=== PATIENT | male | born 1980 | race Caucasian/White ===

== ENCOUNTER 2017-05-10 10:19 | Emergency (ER) | payer SELFPAY ==
[2017-05-10 10:20] VITALS: BP 125/86; PULSE 76; RESP 20; TEMP 98.5; O2SAT 96
--- NOTE | 2017-05-10 10:41 | PD ---
HPI . left ear pain Chief Complaint: ENT Complaint Time Seen by Provider: 10:40 Travel History International Travel<30 days: No Contact w/Intl Traveler<30days: No Traveled to known affect area: No History of Present Illness HPI 36 yr old male here with c/o left ear pain and right elbow pain. Patient suddenly developed left ear pain. He says he saw a small amount of blood come out. He admits to lots of swimming. He also says he popped his right elbow and thinks he could have torn something. He is accompanied by his parents. PFSH Social History Tobacco Use: No Allergies-Medications (Allergen,Severity, Reaction): Coded Allergies: No Known Allergies (Unverified , 05/10/17) Reported Meds & Prescriptions Reported Meds & Active Scripts Active Ofloxacin Otic Drops 0.3 % Drops 10 Drop LEFT EAR DAILY 7 Days Review of Systems General / Constitutional: No: Fever Eyes: No: Visual changes HENT: Positive: Ear Discharge (blood), Earache, No: Headaches Cardiovascular: No: Chest Pain or Discomfort Respiratory: No: Shortness of Breath Gastrointestinal: No: Abdominal Pain Genitourinary: No: Dysuria Musculoskeletal: Positive: Pain (right elbow) Skin: No Rash Neurologic: No: Weakness Psychiatric: No: Depression Endocrine: No: Polydipsia Hematologic/Lymphatic: No: Easy Bruising Physical Exam Narrative GENERAL: AAO x 3, no acute distress, Well-nourished, well-developed patient. SKIN: Warm and dry. No visible rashes or bruising. HEAD: Normocephalic and atraumatic. EYES: No scleral icterus. No injection or drainage. EOM intact, PERRLA ENT: No nasal drainage noted. Mucous membranes pink. Airway patent. Bilateral TMs normal, left ear canal erythematous and edematous NECK: Supple, trachea midline. No JVD. No lymphadenopathy CARDIOVASCULAR: Regular rate and rhythm without murmurs, gallops, or rubs. RESPIRATORY: Breath sounds equal bilaterally. No accessory muscle use. No rhonchi or rales. GASTROINTESTINAL: Visual inspection normal EXTREMITIES: No cyanosis or edema. Full ROM of Right elbow. no tenderness to palpation, pain more along muscle of the upper arm. mild ecchymosis of soft tissue of upper arm BACK: No obvious deformity. 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 Data Data Last Documented VS Vital Signs Date Time Temp Pulse Resp B/P Pulse Ox O2 Delivery O2 Flow Rate FiO2 05/10/17 10:20 98.5 76 20 125/86 96 Room Air MDM Medical Decision Making Medical Screen Exam Complete: Yes Emergency Medical Condition: Yes Medical Record Reviewed: Yes Differential Diagnosis Otitis externa, otitis media, muscle strain, soft tissue injury, less likely elbow fracture Narrative Course 36-year-old male here with left otitis media. I will go ahead and treat him with some ear drops. In regards to his right arm, there is no evidence of a bony abnormality. I do not recommend imaging. I've discussed this with the family and recommended outpatient follow-up. I advised no swimming. Also recommend Tylenol and Motrin as needed for pain and fever. Patient verbalized understanding of instructions, questions were answered, and thanked me for their care. I advised them if their condition worsens, please return to the nearest emergency room for further care. Diagnosis Primary Impression: Otitis externa of left ear Qualified Code: H60.332 - Acute swimmer's ear of left side Additional Impression: Elbow pain, right Patient Instructions: General Instructions Additional Instructions: Please return to emergency department if your symptoms return or worsen. Follow up with your primary care provider. Take medications as prescribed. No swimming for one week. Follow-up with your primary care provider regarding your right elbow. Use Tylenol or Motrin as needed for pain and fever. Med/Other Pt SpecificInfo: Prescription(s) given Scripts Ofloxacin Otic Drops 0.3 % Drops10 Drop LEFT EAR DAILY 7 Days Ref 0 Prov:Barrera Padilla MD 05/10/17 Disposition: 01 DISCHARGE HOME Condition: Stable Isabel Lara May 10, 2017 10:40
[2017-05-10] MEDS ORDERED: OFLO0.3D9 LEFT EAR (10:45)
== END 2017-05-10 11:16 | disposition home or self-care (01) ==
LOC: NEPK 10:19
DX: H60.332 Swimmer's ear, left ear (principal); M25.521 Pain in right elbow
CPT/HCPCS: 99283

== ENCOUNTER 2017-11-27 13:17 | Inpatient (IN) | payer OTHER ==
[~2017-11-27] VITALS: Ht 175.3 cm; Wt 77.0 kg
[~2017-11-27 13:17] MED LIST: OFLO0.3D9 LEFT EAR
[2017-11-27 13:18] VITALS: BP 138/94; PULSE 123; RESP 20; TEMP 98.7; O2SAT 94
[2017-11-27 14:42] LABS: AUTOMATED NEUTROPHIL # 5.4 TH/MM3 (1.8-7.7); BASOPHIL % 0.4 % (0.0-2.0); EOSINOPHIL # 0.1 TH/MM3 (0-0.4); EOSINOPHIL % 0.8 % (0.0-4.0); HEMOGLOBIN 16.4 GM/DL (13.0-17.0); LYMPH % 20.5 % (9.0-44.0); LYMPHOCYTE # 1.7 TH/MM3 (1.0-4.8); MEAN CELL VOLUME 98.3 FL (80.0-100.0); MEAN CORPUSCULAR HGB CONC 35.6 % (32.0-36.0); MEAN PLATELET VOLUME 6.8 FL (7.0-11.0); MONO % 12.3 % (0.0-8.0); PLATELET COUNT 251 TH/MM3 (150-450); RED BLOOD COUNT 4.68 MIL/MM3 (4.50-5.90); RED CELL DISTRIBUTION WIDTH 13.1 % (11.6-17.2); WHITE BLOOD COUNT 8.1 TH/MM3 (4.0-11.0)
[2017-11-27 14:48] LABS: BICARBONATE 27.4 MEQ/L (21.0-32.0); CALCIUM 9.5 MG/DL (8.5-10.1); CREATININE 0.86 MG/DL (0.60-1.30)
[2017-11-27] MEDS ORDERED: NICOTINE 21 MG/24 HR PATCH T-DERMAL ONE (15:15)
[2017-11-27] MEDS ORDERED: POTASSIUM CHLORIDE 20 MEQ CONTROLLED RELEASE TAB PO ONE (15:15)
--- NOTE | 2017-11-27 15:16 | PD ---
HPI Chief Complaint: Psychiatric Symptoms Time Seen by Provider: 14:46 Travel History International Travel<30 days: No Contact w/Intl Traveler<30days: No Traveled to known affect area: No History of Present Illness HPI 37-year-old male presents to the emergency Department voluntarily for psychological evaluation for worsening of depression and having suicidal thoughts and attempted suicide 2 weeks ago. History of bipolar disorder. Has been out of this medication since February. Had thoughts of using a razor knife in the truck door to slit his throat. Also stated in triage his plan would be "dependent on what we are going to do for him." Attempted suicide 2 weeks ago by overdosing on his medications. Has history of attempted previous to that also. Reports smoking marijuana. Denies other illicit drug use. Denies homicidal ideations. Reports hearing voices. Reports "continuous" alcohol use and says he's been drinking alcohol today. No known aggravating or relieving factors. Symptoms are moderate to severe in severity. He has not taken any medications or tried any treatments to alleviate his symptoms. No primary care provider. No psychiatrist. Denies any past medical history. No known allergies. Has no other medical complaints. Is complaining of right lower rib cage pain after a fall 2 weeks ago to his right side. Says he was seen at another hospital and x-rays were obtained which were negative per the patient. Denies chest pain, shortness of breath, abdominal pain, vomiting, fevers, change in urine or stool. No other modifying factors or associated signs and symptoms. PFSH Past Medical History Bipolar Disorder: Yes Psychiatric: Yes Schizophrenia: Yes Tetanus Vaccination: < 5 Years Past Surgical History Abdominal Surgery: Yes (stent) Social History Alcohol Use: Yes (lots) Tobacco Use: Yes Substance Use: No Allergies-Medications (Allergen,Severity, Reaction): Coded Allergies: No Known Allergies (Unverified Adverse Reaction, Unknown, 11/27/17) Reported Meds & Prescriptions Reported Meds & Active Scripts Active No Active Prescriptions or Reported Medications Physical Exam Narrative GENERAL: Well-nourished, well-developed male patient, in no acute distress SKIN: Warm and dry. HEAD: Atraumatic. Normocephalic. EYES: Pupils equal and round. ENT: Mucosa pink and moist. NECK: Supple. Trachea midline. CHEST: Tenderness on palpation to the right lower lateral and anterior rib cage ; without deformity or crepitance; without erythema, edema, ecchymosis. No retractions or use of accessory muscles. CARDIOVASCULAR: Regular rate and rhythm. No murmur appreciated. 3+ radial pulses. RESPIRATORY: No accessory muscle use. Clear to auscultation. Breath sounds equal bilaterally. GASTROINTESTINAL: Abdomen soft, non-tender, nondistended. Hepatic and splenic margins not palpable. Bowel sounds are active 4 quadrants. MUSCULOSKELETAL: No obvious deformities. No clubbing. No cyanosis. No edema. BACK: No CVA tenderness. NEUROLOGICAL: Awake and alert. Oriented 3. No obvious cranial nerve deficits. Motor grossly within normal limits. Normal speech. Moves all extremities. 5/5 strength to all extremities. PSYCHIATRIC: No delusional thought processes. No hallucinations. Data Data Last Documented VS Vital Signs Date Time Temp Pulse Resp B/P (MAP) Pulse Ox O2 Delivery O2 Flow Rate FiO2 11/28/17 06:12 99 18 131/98 (109) 97 Room Air 11/27/17 13:18 98.7 Orders Orders Complete Blood Count With Diff (11/27/17 13:50) Thyroid Stimulating Hormone (11/27/17 13:50) Basic Metabolic Panel (Bmp) (11/27/17 13:50) Psych Screen (11/27/17 13:50) Drug Screen, Random Urine (11/27/17 13:50) Alcohol (Ethanol) (11/27/17 13:50) Nicotine 21 Mg Patch.24 Hr (Habitrol 21 (11/27/17 15:15) Potassium Chloride (Kcl) (11/27/17 15:15) Salicylates (Aspirin) (11/27/17 15:11) Tylenol (Acetaminophen) (11/27/17 15:11) Ribs, Uni (W/Exp Cxr-Min 3vw) (11/27/17 ) Ibuprofen (Motrin) (11/27/17 17:30) Resp Incentive Spirometry (11/27/17 ) Diet Regular Basic (11/28/17 Breakfast) Labs Laboratory Tests Test 11/27/17 14:10 White Blood Count 8.1 TH/MM3 Red Blood Count 4.68 MIL/MM3 Hemoglobin 16.4 GM/DL Hematocrit 46.0 % Mean Corpuscular Volume 98.3 FL Mean Corpuscular Hemoglobin 35.0 PG Mean Corpuscular Hemoglobin Concent 35.6 % Red Cell Distribution Width 13.1 % Platelet Count 251 TH/MM3 Mean Platelet Volume 6.8 FL Neutrophils (%) (Auto) 66.0 % Lymphocytes (%) (Auto) 20.5 % Monocytes (%) (Auto) 12.3 % Eosinophils (%) (Auto) 0.8 % Basophils (%) (Auto) 0.4 % Neutrophils # (Auto) 5.4 TH/MM3 Lymphocytes # (Auto) 1.7 TH/MM3 Monocytes # (Auto) 1.0 TH/MM3 Eosinophils # (Auto) 0.1 TH/MM3 Basophils # (Auto) 0.0 TH/MM3 CBC Comment DIFF FINAL Differential Comment Blood Urea Nitrogen 7 MG/DL Creatinine 0.86 MG/DL Random Glucose 117 MG/DL Calcium Level 9.5 MG/DL Sodium Level 136 MEQ/L Potassium Level 3.2 MEQ/L Chloride Level 100 MEQ/L Carbon Dioxide Level 27.4 MEQ/L Anion Gap 9 MEQ/L Estimat Glomerular Filtration Rate 99 ML/MIN Thyroid Stimulating Hormone 3rd Gen 1.010 uIU/ML Salicylates Level 3.8 MG/DL Urine Opiates Screen NEG Acetaminophen Level LESS THAN 2.0 MCG/ML Urine Barbiturates Screen NEG Urine Amphetamines Screen NEG Urine Benzodiazepines Screen NEG Urine Cocaine Screen NEG Urine Cannabinoids Screen NEG Ethyl Alcohol Level 319 MG/DL MDM Medical Decision Making Medical Screen Exam Complete: Yes Emergency Medical Condition: Yes Medical Record Reviewed: Yes Differential Diagnosis Medical clearance for psychiatric admission, suicidal ideation, rib contusion, rib fracture Narrative Course Patient presents voluntarily. I Mercedes acted the patient; wanted to leave and I feel that he is a threat to himself with his attempted suicide 2 weeks ago and his current suicidal thoughts. History bipolar disorder. Physical examination and vital signs are essentially unremarkable. Patient has no medical complaints to report. Psych screen has been ordered. If the laboratory results are unremarkable, the patient will be medically cleared for psychiatric evaluation and disposition. 1720: Right rib with expiratory chest x-ray concludes: Acute fractures involving the anterolateral aspects of the right eighth, ninth, and 10th ribs. Ibuprofen ordered. Diagnosis Primary Impression: Medical clearance for psychiatric admission Additional Impression: Ribs, multiple fractures Qualified Codes: S22.41XA - Multiple fractures of ribs, right side, initial encounter for closed fracture Additional Instructions: Ibuprofen or Tylenol as directed and as needed to reduce pain Heating pad and/or ice to affected area to reduce pain Avoid aggravating activities; increase activity as tolerated Gentle stretching to the affected muscle may be helpful Incentive spirometer for deep breathing exercises every 2 hours while awake Follow-up with a primary care provider Return to the emergency department immediately with worsening of symptoms Scripts No Active Prescriptions or Reported Meds Condition: Stable Linda Xiong Nov 27, 2017 15:16
--- NOTE | 2017-11-27 16:46 | RADRPT ---
EXAM DATE/TIME: 11/27/2017 15:35 [facility] COMPARISON: No previous studies available for comparison. INDICATIONS : Pain in right ribs, from fall. MEDICAL HISTORY : None. SURGICAL HISTORY : None. ENCOUNTER: Initial ACUITY: 1 day PAIN SCORE: 6/10 LOCATION: Right lower ribs FINDINGS: Acute fractures are noted involving the anterior lateral aspects of the right eighth, ninth and 10th ribs. No pneumothorax is noted. CONCLUSION: Acute fractures involving the anterolateral aspects of the right eighth, ninth and 10th ribs. Filiberto Barragan MD on November 27, 2017 at 16:43 Board Certified Radiologist. This report was verified electronically.
[2017-11-27] MEDS ORDERED: IBUPROFEN 800 MG TAB PO ONE (17:30)
[2017-11-27 19:23] VITALS: BP 136/87; PULSE 102; RESP 18; O2SAT 95
[2017-11-27 22:39] VITALS: BP 129/85; PULSE 115; RESP 18; O2SAT 98
[2017-11-28 06:12] VITALS: BP 131/98; PULSE 99; RESP 18; O2SAT 97
[2017-11-28 11:15] VITALS: BP 136/90; PULSE 102; RESP 18; O2SAT 98
[2017-11-28 17:10] VITALS: BP 136/97; PULSE 92; RESP 18; TEMP 98.2; O2SAT 97
[2017-11-28] MEDS ORDERED: LORazepam 2 MG/ML VIAL IM PRN ×4 (17:15)
[2017-11-28] MEDS ORDERED: MAGNESIUM HYDROXIDE SUSP 30 ML CUP PO PRN (17:15)
[2017-11-28] MEDS ORDERED: diphenhydrAMINE HCL 50 MG/ML VIAL - HS PRN IM (17:15)
[2017-11-28] MEDS ORDERED: diphenhydrAMINE HCL 50 MG CAP PO PRN (17:15)
[2017-11-28] MEDS ORDERED: hydrOXYzine HCL 50 MG TAB PO PRN (17:15)
[2017-11-28] MEDS ORDERED: ALUMINUM/MAGNESIUM/SIMETH 30 ML CUP PO PRN (17:15)
[2017-11-28] MEDS ORDERED: diphenhydrAMINE HCL 50 MG/ML VIAL IM PRN (17:15)
[2017-11-28] MEDS ORDERED: LORazepam 1 MG TAB PO PRN (17:15)
[2017-11-28] MEDS ORDERED: FLUMAZENIL 0.5 MG/5 ML VIAL IV PUSH PRN (17:15)
[2017-11-28] MEDS ORDERED: LORazepam 2 MG TAB PO PRN (17:15)
[2017-11-28 18:00] VITALS: BP 133/96; PULSE 90; RESP 20
[2017-11-28 20:00] VITALS: BP 138/93; PULSE 91; RESP 18; TEMP 98.7; O2SAT 96
[2017-11-28 20:45] VITALS: BP 148/100; PULSE 102
[2017-11-28] MEDS: REMOVE OLD NICOTINE PATCH T-DERMAL SCH (21:00)
[2017-11-28] MEDS: ACETAMINOPHEN 325 MG TAB PO PRN (22:31)
[2017-11-29] MEDS: ACETAMINOPHEN 325 MG TAB PO PRN (00:48)
[2017-11-29 06:28] VITALS: BP 118/79; PULSE 80; RESP 16; TEMP 97.9; O2SAT 98
[2017-11-29 07:24] LABS: CHOLESTEROL 231 MG/DL (120-200); TRIGLYCERIDES 138 MG/DL (42-150)
[2017-11-29 07:26] LABS: HDL CHOLESTEROL 88.8 MG/DL (40.0-60.0); LDL CHOLESTEROL 115 MG/DL (0-99)
[2017-11-29 08:00] LABS: BICARBONATE 27.6 MEQ/L (21.0-32.0); CALCIUM 9.5 MG/DL (8.5-10.1); CREATININE 0.83 MG/DL (0.60-1.30)
[2017-11-29] MEDS: NICOTINE 21 MG/24 HR PATCH T-DERMAL SCH (09:25)
[2017-11-29] MEDS ORDERED: POTASSIUM CHLORIDE 20 MEQ CONTROLLED RELEASE TAB PO ONE (14:15)
--- NOTE | 2017-11-29 14:40 | PD.CONS ---
HPI Service [facility] Consult Requested By Dr. Farmer Reason for Consult High blood pressure Primary Care Physician No Primary Care Physician Diagnoses: (1) Elevated BP without diagnosis of hypertension (2) Anxiety (3) Diarrhea (4) Alcohol abuse (5) Ribs, multiple fractures History of Present Illness 37-year-old male with PMH significant for anxiety, bipolar, esophageal stricture, tobacco and alcohol abuse who presented to emergency department on 11/27 on a voluntary basis due to suicidal thoughts. She with a recent history of suicide attempt with medication overdose about 2 weeks ago. View of ED documentation stating patient has been out of his medications since February. He was also evaluated for rib fractures and cleared for inpatient psychiatry admission. Psychiatry has consulted medical team to assist with management of elevated blood pressure. Patient denies any past medical history of hypertension and states that this might be related to his anxiety. He reports smoking cigarettes daily as well as drinking vodka daily. His last drink was on 11/27 states that he was having cold sweats before, none now. He denies any fevers, chills, nausea, vomiting, headache, shortness of breath, cough, visual or auditory hallucinations. Denies any hand tremors or shakiness. Reports 4 episodes of applesauce consistency diarrhea today. Denies any abdominal pain, black or bloody stools. Review of Systems Except as stated in HPI: all other systems reviewed are Neg Past Family Social History Allergies: Coded Allergies: No Known Allergies (Unverified Allergy, Unknown, 11/28/17) Past Medical History Esophageal stricture Bipolar disorder Anxiety Past Surgical History Esophageal stent Right wrist hardware placement secondary to fracture. Reported Medications Reported Meds & Active Scripts Active No Active Prescriptions or Reported Medications Active Ordered Medications Current Medications Medications (Trade) Dose Ordered Sig/Cyrus Route Start Time Stop Time Status Last Admin (Atarax) 50 mg Q6H PRN PO 11/28/17 17:15 (Benadryl) 50 mg Q6H PRN PO 11/28/17 17:15 (Benadryl Inj) 50 mg Q6H PRN IM 11/28/17 17:15 (Benadryl) 50 mg HS PRN PO 11/28/17 17:15 (Benadryl Inj) 50 mg HS PRN IM 11/28/17 17:15 (Tylenol) 650 mg Q4H PRN PO 11/28/17 17:15 11/28/17 22:31 (Milk Of Magnesia Liq) 30 ml DAILY PRN PO 11/28/17 17:15 (Mag-Al Plus Susp Liq) 30 ml Q6H PRN PO 11/28/17 17:15 (Habitrol 21 Mg Patch.24 Hr) 1 patch DAILY T-DERMAL 11/29/17 09:00 11/29/17 09:25 Miscellaneous Information 1 HS T-DERMAL 11/28/17 21:00 (Ativan) 1 mg Q4H PRN PO 11/28/17 17:15 11/28/17 22:21 (Ativan Inj) 1 mg Q4H PRN IM 11/28/17 17:15 (Ativan) 2 mg Q2H PRN PO 11/28/17 17:15 (Ativan Inj) 2 mg Q2H PRN IM 11/28/17 17:15 (Ativan Inj) 2 mg Q1H PRN IM 11/28/17 17:15 (Ativan Inj) 2 mg Q15M PRN IM 11/28/17 17:15 (Romazicon Inj) 0.2 mg Q1M PRN IV PUSH 11/28/17 17:15 (SEROquel) 100 mg HS PO 11/29/17 21:00 (Desyrel) 50 mg HS PRN PO 11/29/17 13:00 (Atarax) 50 mg Q6H PRN PO 11/29/17 13:00 Family History Father: Prostate cancer Social History Tobacco use: Half a pack per day Alcohol use: Vodka 1 pint to 1/5 a day for the past 10 years Physical Exam Vital Signs Vital Signs Date Time Temp Pulse Resp B/P (MAP) Pulse Ox O2 Delivery O2 Flow Rate FiO2 11/29/17 06:28 97.9 80 16 118/79 (92) 98 11/28/17 20:45 102 148/100 (116) 11/28/17 20:00 98.7 91 18 138/93 (108) 96 11/28/17 19:02 11/28/17 18:00 90 20 133/96 (108) Room Air 11/28/17 17:10 98.2 92 18 136/97 (110) 97 Room Air Physical Exam GENERAL: This is a well-nourished, well-developed patient, in no apparent distress. SKIN: No rashes, ecchymoses or lesions. Cool and dry. HEAD: Atraumatic. Normocephalic. No temporal or scalp tenderness. EYES: Pupils equal round and reactive. Extraocular motions intact. No scleral icterus. No injection or drainage. ENT: Nose without bleeding, purulent drainage or septal hematoma. Throat without erythema. Airway patent. NECK: Trachea midline. No JVD. Supple, nontender. CARDIOVASCULAR: Regular rate and rhythm without murmurs, gallops, or rubs. RESPIRATORY: Clear to auscultation. Breath sounds equal bilaterally. No wheezes , rales, or rhonchi. GASTROINTESTINAL: Abdomen soft, non-tender, nondistended. Normoactive bowel sounds in all quadrants. No guarding. MUSCULOSKELETAL: Extremities without clubbing, cyanosis, or edema. No joint tenderness, effusion, or edema noted. NEUROLOGICAL: Awake and alert. Cranial nerves II through XII intact. Motor and sensory grossly within normal limits. Five out of 5 muscle strength in all muscle groups. Normal speech. Laboratory Laboratory Tests Test 11/29/17 06:05 Blood Urea Nitrogen 12 Creatinine 0.83 Random Glucose 102 Calcium Level 9.5 Sodium Level 137 Potassium Level 3.3 Chloride Level 102 Carbon Dioxide Level 27.6 Anion Gap 7 Estimat Glomerular Filtration Rate 103 Triglycerides Level 138 Cholesterol Level 231 LDL Cholesterol 115 HDL Cholesterol 88.8 Cholesterol/HDL Ratio 2.60 Result Diagram: 11/27/17 1410 11/29/17 0605 Imaging Last Impressions Ribs X-Ray 11/27/17 0000 Signed Impressions: Service Date/Time: Monday, November 27, 2017 15:35 - CONCLUSION: Acute fractures involving the anterolateral aspects of the right eighth, ninth and 10th ribs. Filiberto Barragan MD Assessment and Plan Assessment and Plan 37-year-old male with PMH significant for anxiety, bipolar, esophageal stricture, tobacco and alcohol abuse who presented to emergency department on 11/27 on a voluntary basis due to suicidal thoughts. Patient currently in inpatient psychiatry unit, psychiatrist has asked medical team to see patient due to elevated blood pressure. Anxiety/bipolar disorder -Treatment to continue by psychiatry services. Elevated blood pressure reading -Patient denies any past medical history of hypertension. Blood pressure fluctuates, likely related to anxiety -For the moment, if needed we will add antihypertensive agent. Diarrhea -Patient reports 4 episodes of applesauce consistency stools a day -Start Lactinex 1 tablet twice daily, continue monitoring -Consider testing for C. difficile Hyperkalemia - PO replacement, likely secondary to diarrhea, recheck tomorrow. Alcohol abuse/tobacco abuse - Alcohol level on admission 319 - [facility] protocol, monitor for withdrawal symptoms -Discussed importance of alcohol and tobacco cessation. -Nicotine patch Multiple rib fractures - Fall approximately 2 weeks ago on the right side. -X-ray done on 11/27 reviewed, acute fractures involving the anterior lateral aspect of the right eighth, ninth, 10th ribs -Patient reports pain is well controlled, no acute shortness of breath -Tylenol as needed DVT prophylaxis -ambulation Problem Qualifiers (1) Ribs, multiple fractures: Qualified Codes: S22.41XA - Multiple fractures of ribs, right side, initial encounter for closed fracture Rio Aguayo Nov 29, 2017 14:40
[2017-11-29 16:07] LABS: HEMOGLOBIN A1C 5.1 % (4.3-6.0)
[2017-11-29 17:23] VITALS: BP 133/92; PULSE 99; RESP 18; TEMP 98.4; O2SAT 98
--- NOTE | 2017-11-29 17:50 | HHI.HP ---
Provisional Diagnosis Admission Date Nov 28, 2017 at 16:02 [place]. Bipolar disorder, alcohol use disorder, history of polysubstance use Certification of Person's Competence To Provide Express and Informed Consent I have personally examined Bill Weiss , a person being served at [facility] on, Nov 29, 2017 17:45. Express and informed consent means consent voluntarily given in writing, by a competent person, after sufficient explanation and disclosure of the subject matter involved to enable the person to make a knowing and willful decision without any element of force, fraud, deceit, duress, or other form of constraint or coercion. This person is 18 years of age or older, is not now known to be incompetent to consent to treatment with a guardian advocate, and does not have a health care surrogate or proxy currently making medical treatment decisions. I have found this person to be one of the following: [x] Competent to provide express and informed consent, as defined above, for voluntary admission to this facility and is competent to provide express and informed consent for treatment. He/she has the consistent capacity to make well reasoned, willful, and knowing decisions concerning his or her medical or mental health treatment. The person fully and consistently understands the purpose of the admission for examination/placement and is fully capable of personally exercising all rights assured [place] Incompetent to provide express and informed consent to voluntary admission, and this is incompetent to provide express and informed consent to treatment. The person must be transferred to involuntary status and a petition for a guardian advocate filed with the Circuit Court. [] Refusing to provide express and informed consent to voluntary admission but is competent to provide express and informed consent for treatment. The person must be discharged or transferred to involuntary status. Form shall be completed within 24 hours of a person's arrival at the receiving facility and filed in the clinical record of each person: 1. Admitted on a voluntary basis 2. Permitted to provide express and informed consent to his/her own treatment 3. Allowed to transfer from involuntary to voluntary status 4. Prior to permitting a person to consent to his or her own treatment after having been previously found incompetent to consent to treatment. History of Present Illness Capacity: Has Capacity HPI Patient is a 37 y/o man, domiciled alone, with two children, with past psychiatric history of bipolar disorder as per patient, four previous psychiatric admissions, 5 reported prior suicide attempts (last time being 14 months ago), no self injurious behavior, who presented to the ED feeling depressed with suicidal ideation and having reportedly had a suicide attempt two weeks ago via overdose, noncompliance with treatment since February 2017, endorsing AH and SI with plan to use a knife to slit his throat in the context of alcohol intoxication and subsequently admitted to the inpatient psychiatry unit for further evaluation and management. Patient was found sitting in day room, calm and cooperative with interview. Patient states that he had been feeling "not too good", drinking alcohol daily ("a fifth per day" of liquor), history of prior withdrawals, DTs 6 months ago at home as per patient and having SI since two months ago with no identifiable trigger. He states that he had stopped his medications as well. He endorses decreased sleep, energy, concentration, feeling helpless and hopeless, along with AH that "degrade me". He also mentions having recently lost his job. Denies VH or delusions. Family history: great grandfather committed suicide. Past psychiatric history: prior diagnosis of "bipolar-schizophrenic" as per patient, four previous psychiatric admissions (last being 14 months ago), five previous suicide attempts (last being 14 months ago), denies history of self injurious behavior. Substance use history: ETOH use as stated in HPI, history of polysubtance use ( THC/cocaine/methamphetamine), reports previous detox and rehabilitation with longest sobriety being 9 months. Past medical history: denies Allergies: NKDA Social history: , lives alone, has two children, unemployed Collateral contact: [facility] (friend) [phone] Review of Systems Except as stated in HPI: all other systems reviewed are Neg Past Psych History Psychological trauma history great grandfather committed suicide. Violence risk - others (6 mos) low Violence risk - self (6 mos) elevated due to recent SI Substance Abuse History Drugs/Alcohol past 12 months ETOH use as stated in HPI, history of polysubtance use (THC/cocaine/ methamphetamine), reports previous detox and rehabilitation with longest sobriety being 9 months. Past Family Social History Coded Allergies: No Known Allergies (Unverified Allergy, Unknown, 11/28/17) Discontinued Scripts Ofloxacin Otic Drops (Ofloxacin Otic Drops) 0.3 % Drops, 10 DROP LEFT EAR DAILY for Infection for 7 Days, BOTTLE 0 Refills Prov:Barrera Padilla MD 05/10/17 Current Medications Medications (Trade) Dose Ordered Sig/Cyrus Route Start Time Stop Time Status Last Admin (Atarax) 50 mg Q6H PRN PO 11/28/17 17:15 (Benadryl) 50 mg Q6H PRN PO 11/28/17 17:15 (Benadryl Inj) 50 mg Q6H PRN IM 11/28/17 17:15 (Benadryl) 50 mg HS PRN PO 11/28/17 17:15 (Benadryl Inj) 50 mg HS PRN IM 11/28/17 17:15 (Tylenol) 650 mg Q4H PRN PO 11/28/17 17:15 11/28/17 22:31 (Milk Of Magnesia Liq) 30 ml DAILY PRN PO 11/28/17 17:15 (Mag-Al Plus Susp Liq) 30 ml Q6H PRN PO 11/28/17 17:15 (Habitrol 21 Mg Patch.24 Hr) 1 patch DAILY T-DERMAL 11/29/17 09:00 11/29/17 09:25 Miscellaneous Information 1 HS T-DERMAL 11/28/17 21:00 (Ativan) 1 mg Q4H PRN PO 11/28/17 17:15 11/28/17 22:21 (Ativan Inj) 1 mg Q4H PRN IM 11/28/17 17:15 (Ativan) 2 mg Q2H PRN PO 11/28/17 17:15 (Ativan Inj) 2 mg Q2H PRN IM 11/28/17 17:15 (Ativan Inj) 2 mg Q1H PRN IM 11/28/17 17:15 (Ativan Inj) 2 mg Q15M PRN IM 11/28/17 17:15 (Romazicon Inj) 0.2 mg Q1M PRN IV PUSH 11/28/17 17:15 (SEROquel) 100 mg HS PO 11/29/17 21:00 (Desyrel) 50 mg HS PRN PO 11/29/17 13:00 (Atarax) 50 mg Q6H PRN PO 11/29/17 13:00 (Lactinex) 1 tab Q12HR PO 11/29/17 21:00 Family Psych History Great grandfather committed suicide Social History , lives alone, has two children, unemployed Collateral contact: Lin Morales (friend) [phone] Patient's Strengths (min. 2) verbal and communicative Physical Exam Patient found to be in no acute distress, no noted gross motor abnormalities, no tremors of EPS, no noted psychomotor agitation of retardation. Vital Signs Vital Signs Date Time Temp Pulse Resp B/P (MAP) Pulse Ox O2 Delivery O2 Flow Rate FiO2 11/29/17 17:23 98.4 99 18 133/92 (106) 98 11/28/17 18:00 Room Air Lab Results labs reviewed Test 11/29/17 06:05 Blood Urea Nitrogen 12 MG/DL Creatinine 0.83 MG/DL Random Glucose 102 MG/DL Calcium Level 9.5 MG/DL Sodium Level 137 MEQ/L Potassium Level 3.3 MEQ/L Chloride Level 102 MEQ/L Carbon Dioxide Level 27.6 MEQ/L Anion Gap 7 MEQ/L Estimat Glomerular Filtration Rate 103 ML/MIN Triglycerides Level 138 MG/DL Cholesterol Level 231 MG/DL LDL Cholesterol 115 MG/DL HDL Cholesterol 88.8 MG/DL Cholesterol/HDL Ratio 2.60 RATIO Mental Status Examination Appearance: Appropriate Consciousness: Alert Orientation: x4 Motor Activity: Normal gait Speech: Unremarkable Language: Adequate Fund of Knowledge: Inadequate Attention and Concentration: Adequate Memory: Unremarkable Mood: Other ("tired") Affect: Other (guarded) Thought Process & Associations: Intact, Linear Thought Content: Hallucinations Hallucination Type: Auditory Delusion Type: None Suicidal Ideation: Yes Suicidal Plan: No Suicidal Intention: No Homicidal Ideation: No Homicidal Plan: No Homicidal Intention: No Insight: Fair Judgment: Impulsive Assessment & Plan Problem List: (1) Bipolar disorder current episode depressed ICD Codes: F31.30 - Bipolar disorder, current episode depressed, mild or moderate severity, unspecified (2) Alcohol use disorder ICD Codes: F10.99 - Alcohol use, unspecified with unspecified alcohol-induced disorder Assessment & Plan Estimated LOS: 5-7days. Patient is a 37 year old man, , who carries a diagnoses of bipolar disorder, alcohol use disorder, history of polysubstance use who presented to the ED reporting worsening depression, suicidal ideation and recent suicide attempt via overdose 2 weeks ago in the context of alcohol use intoxication and her recent unemployment. Patient this time endorsing depressive symptoms along with suicide ideations and auditory hallucinations with recent nonadherence to medications but also with vague responses at times which there is suspicion of secondary gain. We'll restart patient on quetiapine 100 mg by mouth at bedtime, continue on CIWA protocol for withdrawal, withdrawal precautions. Collateral information pending. Continue to monitor mood and behavior. 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 Continue recommendations as per primary medical team. Discharge planning in progress. Discharge Planning Patient to return back to his residence once psychiatrically stable. Chris Urbina MD Nov 29, 2017 17:50
[2017-11-29] MEDS: REMOVE OLD NICOTINE PATCH T-DERMAL SCH (21:00)
[2017-11-29] MEDS ORDERED: QUEtiapine FUMARATE 100 MG TAB PO SCH (21:00)
[2017-11-29] MEDS: LACTOBACILLUS ACIDOPHILUS TAB PO SCH (21:57)
[2017-11-29] MEDS: diphenhydrAMINE HCL 50 MG CAP - HS PRN PO (21:57)
[2017-11-30] MEDS: traZODone HCL 50 MG TAB PO PRN (00:29)
[2017-11-30 05:48] VITALS: BP 104/57; PULSE 79; RESP 18; TEMP 98.1; O2SAT 99
[2017-11-30] MEDS: LACTOBACILLUS ACIDOPHILUS TAB PO SCH ×2 (09:55→20:36)
[2017-11-30] MEDS: NICOTINE 21 MG/24 HR PATCH T-DERMAL SCH (09:56)
[2017-11-30] MEDS ORDERED: POTASSIUM CHLORIDE 20 MEQ CONTROLLED RELEASE TAB PO ONE (13:00)
--- NOTE | 2017-11-30 13:08 | HHI.PR ---
Subjective Remarks Follow-up visit for HTN, anxiety, and diarrhea. Patient seen and examined in room in no acute distress. He reports diarrhea continues and has had 6 bowel movements as of today describes bowel movements as liquidy with some mucus. He denies any blood or black stools. Denies any nausea, vomiting, fevers, chills, headaches, cough or shortness of breath. Reports some abdominal pain that is alleviated with defecation, no abdominal pain at the moment. Objective Vitals Vital Signs Date Time Temp Pulse Resp B/P (MAP) Pulse Ox O2 Delivery O2 Flow Rate FiO2 11/30/17 05:48 98.1 79 18 104/57 (73) 99 11/29/17 17:23 98.4 99 18 133/92 (106) 98 Result Diagram: 11/27/17 1410 11/30/17 0802 Imaging Last Impressions Ribs X-Ray 11/27/17 0000 Signed Impressions: Service Date/Time: Monday, November 27, 2017 15:35 - CONCLUSION: Acute fractures involving the anterolateral aspects of the right eighth, ninth and 10th ribs. Filiberto Barragan MD Objective Remarks GENERAL: This is a well-nourished, well-developed patient, in no apparent distress. SKIN: Cool and dry. HEAD: Atraumatic. Normocephalic. EYES: Pupils equal round and reactive. No scleral icterus. No injection or drainage. ENT: Nose without bleeding, purulent drainage. Airway patent. NECK: Trachea midline. No JVD. CARDIOVASCULAR: Regular rate and rhythm without murmurs, gallops, or rubs. RESPIRATORY: Clear to auscultation. Breath sounds equal bilaterally. No wheezes , rales, or rhonchi. GASTROINTESTINAL: Abdomen soft, mild LLQ tenderness with deep palpation, nondistended. Normoactive bowel sounds in all quadrants. No guarding. MUSCULOSKELETAL: Extremities without clubbing, cyanosis, or edema. No joint tenderness, effusion, or edema noted. NEUROLOGICAL: Awake and alert. Motor and sensory grossly within normal limits. Moves all extremities spontaneously. Normal speech. A/P Problem List: (1) Elevated BP without diagnosis of hypertension ICD Code: R03.0 - Elevated blood-pressure reading, without diagnosis of hypertension (2) Anxiety ICD Code: F41.9 - Anxiety disorder, unspecified (3) Diarrhea ICD Code: R19.7 - Diarrhea, unspecified (4) Alcohol abuse ICD Code: F10.10 - Alcohol abuse, uncomplicated (5) Ribs, multiple fractures ICD Code: S22.49XA - Multiple fractures of ribs, unspecified side, initial encounter for closed fracture Status: Acute Assessment and Plan 37-year-old male with PMH significant for anxiety, bipolar, esophageal stricture, tobacco and alcohol abuse who presented to emergency department on 11/27 on a voluntary basis due to suicidal thoughts. Patient currently in inpatient psychiatry unit, psychiatrist has asked medical team to see patient due to elevated blood pressure. Anxiety/bipolar disorder -Treatment to continue by psychiatry services. Elevated blood pressure reading -Patient denies any past medical history of hypertension. Blood pressure fluctuates, likely related to anxiety -No antihypertensive agent for now. Diarrhea - Ongoing with 6 BMs today. - Continue Lactinex 1 tablet twice daily - Check stool for C. difficile Hyperkalemia - 3.3 this AM replacement, likely secondary to diarrhea, recheck tomorrow. Alcohol abuse/tobacco abuse - Alcohol level on admission 319 - WA protocol, monitor for withdrawal symptoms -Nicotine patch Multiple rib fractures - Fall approximately 2 weeks ago on the right side. -X-ray done on 11/27 reviewed, acute fractures involving the anterior lateral aspect of the right eighth, ninth, 10th ribs - mild rib pain, Lidoderm pain -Tylenol as needed DVT prophylaxis -ambulation Problem Qualifiers (1) Ribs, multiple fractures: Qualified Codes: S22.41XA - Multiple fractures of ribs, right side, initial encounter for closed fracture Rio Aguayo Nov 30, 2017 13:08
--- NOTE | 2017-11-30 15:35 | HHI.PYPN ---
Subjective Remarks Patient is here for follow-up, chart reviewed. Discussion nursing staff reported the patient has not had high CIWA scores requiring Lorazepam, has been visible on unit. Patient was found in the room watching television was noted to be calm and cooperative interview today. Patient states that his mood has been "okay today" continues to report feeling depressed having sleep difficulty last evening as well as having had suicide ideation last time being last night. Patient stated he is trying to attend groups. Review of Systems Except as stated in HPI: all other systems reviewed are Neg Mental Status Examination Appearance: Appropriate Consciousness: Alert Orientation: x4 Motor Activity: Normal gait Speech: Unremarkable Language: Adequate Fund of Knowledge: Inadequate Attention and Concentration: Adequate Memory: Unremarkable Mood: Sad Affect: Other (guarded) Thought Process & Associations: Intact, Linear Thought Content: Hallucinations Hallucination Type: Auditory Delusion Type: None Suicidal Ideation: Yes Suicidal Plan: No Suicidal Intention: No Homicidal Ideation: No Homicidal Plan: No Homicidal Intention: No Insight: Fair Judgment: Impulsive Results Labs Labs reviewed Test 11/30/17 08:02 Potassium Level 3.3 MEQ/L Magnesium Level 1.7 MG/DL Vitals/IOs Vital Signs Date Time Temp Pulse Resp B/P (MAP) Pulse Ox O2 Delivery O2 Flow Rate FiO2 11/30/17 05:48 98.1 79 18 104/57 (73) 99 11/28/17 18:00 Room Air Assessment & Plan Problem List: (1) Bipolar disorder current episode depressed ICD Codes: F31.30 - Bipolar disorder, current episode depressed, mild or moderate severity, unspecified (2) Alcohol use disorder ICD Codes: F10.99 - Alcohol use, unspecified with unspecified alcohol-induced disorder Assessment & Plan Patient continues to report feeling depressed along with suicide ideations with poor sleep. We will continue to titrate quetiapine with increased to 200 mg p.o. at bedtime tonight. Continue rest of medications. Continue to monitor mood and behavior. Continue CIWA protocol for withdrawal. Continue withdrawal precautions. Continue recommendations as per prior medical team. Discharge planning in progress Justification for Cont. Inpt. At risk for further decompensation if at lower level of care Discharge Planning To be determined Chris Urbina MD Nov 30, 2017 15:35
[2017-11-30] MEDS: diphenhydrAMINE HCL 50 MG CAP - HS PRN PO (20:35)
[2017-11-30] MEDS: QUEtiapine FUMARATE 100 MG TAB PO SCH (20:36)
[2017-11-30] MEDS: REMOVE OLD NICOTINE PATCH T-DERMAL SCH (20:40)
[2017-11-30] MEDS ORDERED: QUEtiapine FUMARATE 100 MG TAB PO SCH (21:00)
[2017-12-01 05:51] VITALS: BP 115/74; PULSE 76; RESP 18; TEMP 97.9; O2SAT 97
[2017-12-01] MEDS ORDERED: CHOLESTYRAMINE 4 GM PACKET PO SCH (09:00)
[2017-12-01] MEDS: LACTOBACILLUS ACIDOPHILUS TAB PO SCH ×2 (10:23→20:44)
[2017-12-01] MEDS: NICOTINE 21 MG/24 HR PATCH T-DERMAL SCH (10:23)
[2017-12-01 10:33] LABS: BICARBONATE 27.3 MEQ/L (21.0-32.0); CALCIUM 8.8 MG/DL (8.5-10.1); CREATININE 0.92 MG/DL (0.60-1.30)
[2017-12-01] MEDS: LIDOCAINE HCL 5% PATCH T-DERMAL SCH (10:44)
[2017-12-01] MEDS: hydrOXYzine HCL 50 MG TAB PO PRN ×2 (11:00→19:28)
[2017-12-01] MEDS ORDERED: LOPERAMIDE HCL 2 MG CAP PO PRN (11:30)
--- NOTE | 2017-12-01 12:00 | HHI.PR ---
Subjective Remarks Follow-up visit for elevated BP, and diarrhea. Patient seen and examined in chair, he denies anymore diarrhea or abdominal cramps/pain, denies fevers, chills N/V. States that Lidoderm patch did help with rib pain, voices no complaints today. Objective Vitals Vital Signs Date Time Temp Pulse Resp B/P (MAP) Pulse Ox O2 Delivery O2 Flow Rate FiO2 12/01/17 05:51 97.9 76 18 115/74 (88) 97 Result Diagram: 11/27/17 1410 12/01/17 0825 Imaging Last Impressions Ribs X-Ray 11/27/17 0000 Signed Impressions: Service Date/Time: Monday, November 27, 2017 15:35 - CONCLUSION: Acute fractures involving the anterolateral aspects of the right eighth, ninth and 10th ribs. Filiberto Barragan MD Objective Remarks GENERAL: This is a well-nourished, well-developed patient, in no apparent distress. SKIN: Cool and dry. HEAD: Atraumatic. Normocephalic. EYES: Pupils equal round and reactive. No scleral icterus. No injection or drainage. ENT: Nose without bleeding, purulent drainage. Airway patent. NECK: Trachea midline. No JVD. CARDIOVASCULAR: Regular rate and rhythm without murmurs, gallops, or rubs. RESPIRATORY: Clear to auscultation. Breath sounds equal bilaterally. No wheezes , rales, or rhonchi. GASTROINTESTINAL: Abdomen soft, non-tender, nondistended. Normoactive bowel sounds in all quadrants. No guarding. MUSCULOSKELETAL: Extremities without clubbing, cyanosis, or edema. No joint tenderness, effusion, or edema noted. NEUROLOGICAL: Awake and alert. Motor and sensory grossly within normal limits. Moves all extremities spontaneously. Normal speech. A/P Problem List: (1) Elevated BP without diagnosis of hypertension ICD Code: R03.0 - Elevated blood-pressure reading, without diagnosis of hypertension (2) Anxiety ICD Code: F41.9 - Anxiety disorder, unspecified (3) Diarrhea ICD Code: R19.7 - Diarrhea, unspecified (4) Alcohol abuse ICD Code: F10.10 - Alcohol abuse, uncomplicated (5) Ribs, multiple fractures ICD Code: S22.49XA - Multiple fractures of ribs, unspecified side, initial encounter for closed fracture Status: Acute Assessment and Plan 37-year-old male with PMH significant for anxiety, bipolar, esophageal stricture, tobacco and alcohol abuse who presented to emergency department on 11/27 on a voluntary basis due to suicidal thoughts. Patient currently in inpatient psychiatry unit, psychiatrist has asked medical team to see patient due to elevated blood pressure. Anxiety/bipolar disorder -Treatment to continue by psychiatry services. Elevated blood pressure reading -Patient denies any past medical history of hypertension. Blood pressure fluctuates, likely related to anxiety -No antihypertensive agent for now, BP stable. Diarrhea - Resolved - C. diff negative - Can continue Lactinex if he would like Hyperkalemia - Resolved, K this AM 3.5 Alcohol abuse/tobacco abuse - Alcohol level on admission 319 - CIWA protocol, no visible signs - Nicotine patch Multiple rib fractures - Fall approximately 2 weeks ago on the right side. -X-ray done on 11/27 reviewed, acute fractures involving the anterior lateral aspect of the right eighth, ninth, 10th ribs - Lidoderm helping -Tylenol as needed DVT prophylaxis -ambulation Discussed with nurse. Will sign off, please reconsult if needed, thank you. Problem Qualifiers (1) Ribs, multiple fractures: Qualified Codes: S22.41XA - Multiple fractures of ribs, right side, initial encounter for closed fracture Rio Aguayo Dec 01, 2017 12:00
--- NOTE | 2017-12-01 17:03 | HHI.PYPN ---
Subjective Remarks Pt seen and discussed with staff. He has been compliant with medications. He was anxious and pacing the floors today. He remains depressed. He reported SI last night and upon awakening but decreased as day went on. He has tried to stay out of room and attended some groups. Mental Status Examination Appearance: Appropriate Consciousness: Alert Orientation: x4 Motor Activity: Normal gait Speech: Unremarkable Language: Adequate Fund of Knowledge: Inadequate Attention and Concentration: Adequate Memory: Unremarkable Mood: Sad Affect: Other (guarded) Thought Process & Associations: Intact, Linear Thought Content: Hallucinations Hallucination Type: Auditory Delusion Type: None Suicidal Ideation: Yes Suicidal Plan: No Suicidal Intention: No Homicidal Ideation: No Homicidal Plan: No Homicidal Intention: No Insight: Fair Judgment: Impulsive Results Labs Test 11/30/17 20:30 12/01/17 08:25 Stool C. difficile Toxin (PCR) NEGATIVE Stl C. difficile Toxin Epiderm 027 PRESUMPTIVE NEGATIVE Blood Urea Nitrogen 13 MG/DL Creatinine 0.92 MG/DL Random Glucose 162 MG/DL Calcium Level 8.8 MG/DL Sodium Level 137 MEQ/L Potassium Level 3.5 MEQ/L Chloride Level 102 MEQ/L Carbon Dioxide Level 27.3 MEQ/L Anion Gap 8 MEQ/L Estimat Glomerular Filtration Rate 92 ML/MIN Vitals/IOs Vital Signs Date Time Temp Pulse Resp B/P (MAP) Pulse Ox O2 Delivery O2 Flow Rate FiO2 12/01/17 05:51 97.9 76 18 115/74 (88) 97 11/28/17 18:00 Room Air Assessment & Plan Problem List: (1) Bipolar disorder current episode depressed ICD Codes: F31.30 - Bipolar disorder, current episode depressed, mild or moderate severity, unspecified (2) Alcohol use disorder ICD Codes: F10.99 - Alcohol use, unspecified with unspecified alcohol-induced disorder Assessment & Plan continue current tx plan Estimated LOS: days Justification for Cont. Inpt. impairments in safety Macrina Henderson MD Dec 01, 2017 17:03
[2017-12-01 18:00] VITALS: BP 118/78; PULSE 77; RESP 18; TEMP 97.1; O2SAT 98
[2017-12-01] MEDS: QUEtiapine FUMARATE 100 MG TAB PO SCH (20:45)
[2017-12-01] MEDS: diphenhydrAMINE HCL 50 MG CAP - HS PRN PO (20:45)
[2017-12-01] MEDS: REMOVE OLD LIDOCAINE PATCH T-DERMAL SCH (20:46)
[2017-12-01] MEDS: REMOVE OLD NICOTINE PATCH T-DERMAL SCH (21:00)
[2017-12-01] MEDS: traZODone HCL 50 MG TAB PO PRN (21:47)
[2017-12-02 05:37] VITALS: BP 115/80; PULSE 86; RESP 18; TEMP 98; O2SAT 97
[2017-12-02] MEDS: LACTOBACILLUS ACIDOPHILUS TAB PO SCH ×2 (08:19→22:20)
[2017-12-02] MEDS: NICOTINE 21 MG/24 HR PATCH T-DERMAL SCH (08:20)
[2017-12-02] MEDS: LIDOCAINE HCL 5% PATCH T-DERMAL SCH (08:20)
[2017-12-02] MEDS: hydrOXYzine HCL 50 MG TAB PO PRN ×3 (09:17→23:14)
[2017-12-02] MEDS: ACETAMINOPHEN 325 MG TAB PO PRN ×2 (09:18→15:31)
--- NOTE | 2017-12-02 13:48 | HHI.PYPN ---
Subjective Remarks Pt seen and discussed with staff. He reports AH but denies command AH today. He has been participating in milieu activities and staying out of bed. He is cooperative with medications. Mood remains depressed. No SI/HI Mental Status Examination Appearance: Appropriate Consciousness: Alert Orientation: x4 Motor Activity: Normal gait Speech: Unremarkable Language: Adequate Fund of Knowledge: Inadequate Attention and Concentration: Adequate Memory: Unremarkable Mood: Sad Affect: Other (guarded) Thought Process & Associations: Intact, Linear Thought Content: Hallucinations Hallucination Type: Auditory Delusion Type: None Suicidal Ideation: No Suicidal Plan: No Suicidal Intention: No Homicidal Ideation: No Homicidal Plan: No Homicidal Intention: No Insight: Fair Judgment: Impulsive Results Vitals/IOs Vital Signs Date Time Temp Pulse Resp B/P (MAP) Pulse Ox O2 Delivery O2 Flow Rate FiO2 12/02/17 05:37 98.0 86 18 115/80 (92) 97 11/28/17 18:00 Room Air Intake and Output 12/02/17 12/02/17 12/03/17 08:00 16:00 00:00 Intake Total 240 ml 240 ml Balance 240 ml 240 ml Assessment & Plan Problem List: (1) Bipolar disorder current episode depressed ICD Codes: F31.30 - Bipolar disorder, current episode depressed, mild or moderate severity, unspecified (2) Alcohol use disorder ICD Codes: F10.99 - Alcohol use, unspecified with unspecified alcohol-induced disorder Assessment & Plan Pt improving. Continue seroquel titration. Estimated LOS: days Justification for Cont. Inpt. impairments in reality testing Macrina Henderson MD Dec 02, 2017 13:48
[2017-12-02 18:42] VITALS: BP 121/77; PULSE 82; RESP 18; TEMP 98.2; O2SAT 97
[2017-12-02] MEDS: REMOVE OLD NICOTINE PATCH T-DERMAL SCH (21:00)
[2017-12-02] MEDS: REMOVE OLD LIDOCAINE PATCH T-DERMAL SCH (21:00)
[2017-12-02] MEDS: QUEtiapine FUMARATE 100 MG TAB PO SCH (22:20)
[2017-12-02] MEDS: traZODone HCL 50 MG TAB PO PRN (23:10)
[2017-12-03 06:20] VITALS: BP 112/70; PULSE 16; RESP 16; TEMP 98.2; O2SAT 98
[2017-12-03] MEDS: LACTOBACILLUS ACIDOPHILUS TAB PO SCH ×2 (08:17→21:14)
[2017-12-03] MEDS: NICOTINE 21 MG/24 HR PATCH T-DERMAL SCH (08:17)
[2017-12-03] MEDS: LIDOCAINE HCL 5% PATCH T-DERMAL SCH (08:19)
[2017-12-03] MEDS: ACETAMINOPHEN 325 MG TAB PO PRN (09:10)
[2017-12-03] MEDS: hydrOXYzine HCL 50 MG TAB PO PRN ×3 (09:10→22:05)
--- NOTE | 2017-12-03 17:10 | HHI.PYPN ---
Subjective Remarks Patient seen for follow-up, chart reviewed. Discussion nursing staff reported the patient has been visible on the unit but minimally reactive with staff. Patient was found walking on the unit noted B, cooperative. Patient states that he has been feeling "alright" states that over the weekend had felt somewhat restless and he states needs to be constantly doing something. Patient states that he is trying to attend 2 groups but continues to report having persistent auditory hallucinations and states that despite treatment they have never gone away. But reports them being less intense. Patient considering re-engaging rehabilitation program but also considering staying with a friend in case patient is not able to be referred to [facility] sober living facility or rehab. Patient continues to report having difficulty with sleep at night. Review of Systems Except as stated in HPI: all other systems reviewed are Neg Mental Status Examination Appearance: Appropriate Consciousness: Alert Orientation: x4 Motor Activity: Normal gait Speech: Unremarkable Language: Adequate Fund of Knowledge: Inadequate Attention and Concentration: Adequate Memory: Unremarkable Mood: Sad, Anxious Affect: Anxious Thought Process & Associations: Intact, Linear Thought Content: Hallucinations Hallucination Type: Auditory Delusion Type: None Suicidal Ideation: No Suicidal Plan: No Suicidal Intention: No Homicidal Ideation: No Homicidal Plan: No Homicidal Intention: No Insight: Fair Judgment: Impulsive Results Vitals/IOs Vital Signs Date Time Temp Pulse Resp B/P (MAP) Pulse Ox O2 Delivery O2 Flow Rate FiO2 12/03/17 06:20 98.2 16 16 112/70 (84) 98 Assessment & Plan Problem List: (1) Bipolar disorder current episode depressed ICD Codes: F31.30 - Bipolar disorder, current episode depressed, mild or moderate severity, unspecified (2) Alcohol use disorder ICD Codes: F10.99 - Alcohol use, unspecified with unspecified alcohol-induced disorder Assessment & Plan Patient at this time noted to have slightly improved mood although continues to report feeling very anxious throughout the day as well as continued auditory hallucinations but less intense. We will continue increase quetiapine 350MG at bedtime and increase trazodone to 100 mg at bedtime for sleep disturbance. Continue monitor mood and behavior. Discharge planning in progress Justification for Cont. Inpt. At risk for further decompensation at lower level of care Chris Urbina MD Dec 03, 2017 17:10
[2017-12-03 17:13] VITALS: BP 120/72; PULSE 74; RESP 18; TEMP 98.4; O2SAT 99
[2017-12-03] MEDS ORDERED: PILL SPLITTER OTHER PRN (17:15)
[2017-12-03] MEDS ORDERED: traZODone HCL 50 MG TAB PO PRN (17:15)
[2017-12-03] MEDS: REMOVE OLD LIDOCAINE PATCH T-DERMAL SCH (21:00)
[2017-12-03] MEDS: REMOVE OLD NICOTINE PATCH T-DERMAL SCH (21:00)
[2017-12-03] MEDS ORDERED: QUEtiapine FUMARATE 100 MG TAB PO SCH (21:00)
[2017-12-04 05:48] VITALS: BP 101/70; PULSE 66; RESP 16; TEMP 97.6
[2017-12-04] MEDS: LACTOBACILLUS ACIDOPHILUS TAB PO SCH ×2 (09:04→21:19)
[2017-12-04] MEDS: LIDOCAINE HCL 5% PATCH T-DERMAL SCH (09:05)
[2017-12-04] MEDS: NICOTINE 21 MG/24 HR PATCH T-DERMAL SCH (09:06)
[2017-12-04] MEDS: hydrOXYzine HCL 50 MG TAB PO PRN ×3 (10:24→22:46)
[2017-12-04] MEDS ORDERED: traZODone HCL 50 MG TAB PO PRN (14:00)
--- NOTE | 2017-12-04 14:43 | HHI.PYPN ---
Subjective Remarks Patient seen for follow-up, chart reviewed. Discussion nursing reported the patient needed but minimally interactive with staff. Patient was day room notably, cooperative. Patient states that his mood is somewhat improved to sleep much better last evening but continues to endorse auditory hallucinations but states the "quiet down with medication". Patient denies any suicidal or homicidal ideations at this time patient continues to report feeling anxious and requesting to be discharged with anxiolytics. Patient continues to report interest in engaging a rehabilitation program. Review of Systems Except as stated in HPI: all other systems reviewed are Neg Mental Status Examination Appearance: Appropriate Consciousness: Alert Orientation: x4 Motor Activity: Normal gait Speech: Unremarkable Language: Adequate Fund of Knowledge: Inadequate Attention and Concentration: Adequate Memory: Unremarkable Mood: Sad, Anxious Affect: Anxious Thought Process & Associations: Intact, Linear Thought Content: Hallucinations Hallucination Type: Auditory Delusion Type: None Suicidal Ideation: No Suicidal Plan: No Suicidal Intention: No Homicidal Ideation: No Homicidal Plan: No Homicidal Intention: No Insight: Fair Judgment: Impulsive Results Vitals/IOs Vital Signs Date Time Temp Pulse Resp B/P (MAP) Pulse Ox O2 Delivery O2 Flow Rate FiO2 12/04/17 05:48 97.6 66 16 101/70 (80) 12/03/17 17:13 99 Intake and Output 12/04/17 12/04/17 12/05/17 08:00 16:00 00:00 Intake Total 120 ml Balance 120 ml Assessment & Plan Problem List: (1) Bipolar disorder current episode depressed ICD Codes: F31.30 - Bipolar disorder, current episode depressed, mild or moderate severity, unspecified (2) Alcohol use disorder ICD Codes: F10.99 - Alcohol use, unspecified with unspecified alcohol-induced disorder Assessment & Plan Patient continues to report feeling depressed and anxious due to his current psychosocial stressors along with having auditory hallucinations that persist but states the medication is somewhat helping. Patient is willing to engage in rehabilitation program if he qualifies and/or sober living.. We will increase quetiapine to 400 mg p.o. at bedtime for psychosis, or sleep disturbance. Continue to monitor mood and behavior. Patient will be provided with information for referral to rehabilitation programs. Discharge planning in progress. Justification for Cont. Inpt. At risk for further decompensation if at lower level of care Chris Urbina MD Dec 04, 2017 14:43
--- NOTE | 2017-12-04 15:36 | PD.TTN ---
Patient Problems 1. Discharge planning 2. Medication compliance 3. Knowledge deficit 4. Lack of coping skills Progress Toward Goals Provider Present: Dr. Naveen Urbina Provider Input: 12/03- Pt medication regiment has been adjusted to include Seroquel. Nurse(s) Present: Rocío Smith, RN Nurse(s) Input: 12/03- Pt is medication seeking, anxious, medication reliant and denies any suicidal or homicidal ideation. Psychiatric Counselors Present: PAULA Smith Psych Therapist Input: 12/03- Pt continues to appear somewhat anxious/depressed, cooperative, appropriate, organized, oriented and visible on unit. Pt has been compliant with medication regiment. He has been implementing some level of coping and emotional regulation skills though appears to be becoming reliant on medication to help cope. Pt presents with poor insight into condition and need for care. He was provided the substance abuse resource packet to search for sober livings. Discharge Plan [facility] Pt has been referred to sober livings but will be a homeless discharge if he cannot arrange this as an option. He will be linked with [facility]. Maco David Dec 04, 2017 15:36
[2017-12-04 18:42] VITALS: BP 124/86; PULSE 88; RESP 18; TEMP 97.4; O2SAT 97
[2017-12-04] MEDS: REMOVE OLD LIDOCAINE PATCH T-DERMAL SCH (21:00)
[2017-12-04] MEDS: REMOVE OLD NICOTINE PATCH T-DERMAL SCH (21:00)
[2017-12-04] MEDS ORDERED: QUEtiapine FUMARATE 200 MG TAB PO SCH (21:00)
[2017-12-05 06:06] VITALS: BP 96/53; PULSE 73; RESP 16; TEMP 97.8; O2SAT 97
[2017-12-05] MEDS: LACTOBACILLUS ACIDOPHILUS TAB PO SCH (08:29)
[2017-12-05] MEDS: NICOTINE 21 MG/24 HR PATCH T-DERMAL SCH (08:30)
[2017-12-05] MEDS: LIDOCAINE HCL 5% PATCH T-DERMAL SCH (08:31)
[2017-12-05] MEDS: ACETAMINOPHEN 325 MG TAB PO PRN (10:13)
[2017-12-05] MEDS: hydrOXYzine HCL 50 MG TAB PO PRN (10:13)
[2017-12-05] MEDS ORDERED: QUET400T PO (11:59)
[2017-12-05] MEDS ORDERED: TRAZ50TA12 PO (11:59)
[2017-12-05] MEDS ORDERED: HYDR50TA94 PO (11:59)
--- NOTE | 2017-12-05 14:02 | HHI.DS ---
Psychiatry Discharge Summary Inpatient Psychiatric care?: Yes Advance Directive: No Reason Not Provided: not interested Mental Health AdvanceDirective: No Health Care Proxy: No Admission Admission Date Nov 28, 2017 at 16:02 Admission Diagnosis: (1) Bipolar disorder current episode depressed ICD Code: F31.30 - Bipolar disorder, current episode depressed, mild or moderate severity, unspecified (2) Alcohol use disorder ICD Code: F10.99 - Alcohol use, unspecified with unspecified alcohol-induced disorder Brief History Patient is a 37 y/o man, domiciled alone, with two children, with past psychiatric history of bipolar disorder as per patient, four previous psychiatric admissions, 5 reported prior suicide attempts (last time being 14 months ago), no self injurious behavior, who presented to the ED feeling depressed with suicidal ideation and having reportedly had a suicide attempt two weeks ago via overdose, noncompliance with treatment since February 2017, endorsing AH and SI with plan to use a knife to slit his throat in the context of alcohol intoxication and subsequently admitted to the inpatient psychiatry unit for further evaluation and management. Patient was found sitting in day room, calm and cooperative with interview. Patient states that he had been feeling "not too good", drinking alcohol daily ("a fifth per day" of liquor), history of prior withdrawals, DTs 6 months ago at home as per patient and having SI since two months ago with no identifiable trigger. He states that he had stopped his medications as well. He endorses decreased sleep, energy, concentration, feeling helpless and hopeless, along with AH that "degrade me". He also mentions having recently lost his job. Denies VH or delusions. Family history: great grandfather committed suicide. Past psychiatric history: prior diagnosis of "bipolar-schizophrenic" as per patient, four previous psychiatric admissions (last being 14 months ago), five previous suicide attempts (last being 14 months ago), denies history of self injurious behavior. Substance use history: ETOH use as stated in HPI, history of polysubtance use ( THC/cocaine/methamphetamine), reports previous detox and rehabilitation with longest sobriety being 9 months. Past medical history: denies Allergies: NKDA Social history: , lives alone, has two children, unemployed Collateral contact: Lin Morales (friend) [phone] Tobacco Use In Past 30 Days: 5 or More Cigarettes/Day Alcohol Use: 4 or More Times Per Week Hospital Course Patient is a 37 y/o man, domiciled alone, with two children, with past psychiatric history of bipolar disorder as per patient, four previous psychiatric admissions, 5 reported prior suicide attempts (last time being 14 months ago), no self injurious behavior, who presented to the ED feeling depressed with suicidal ideation and having reportedly had a suicide attempt two weeks ago via overdose, noncompliance with treatment since February 2017, endorsing AH and SI with plan to use a knife to slit his throat in the context of alcohol intoxication and subsequently admitted to the inpatient psychiatry unit for further evaluation and management. Patient was started on quetiapine and titrated up to 400mg PO HS and Trazodone 100mg at bedtime along with continued CIWA protocol which patient tolerated well and no noted to be re have any withdrawal symptoms. He was noted to be irritable initially but mood stabilized and was calm and cooperative with staff. Patient was noted to have been compliant with treatment, had persistnet auditory hallucinations but were mitigated with treatment.. Upon discharge patient stated that he was feeling good, denied any psychotic symptoms, denied any SI, HI or delusions. Patient agreed to continue medication regimen and outpatient follow up for continuity of care. He also endorsed continued interest to pursue engaging in sober living and/or rehabilitation program for substance use.I have counseled the patient regarding warning signs for need to return to the psychiatric emergency room as part of a general safety plan. Patient advised to call 911 or go nearest ED in case of emergency. Patient agrees with plan. Results Blood Pressure 96 / 53 Vital Signs Date Time Temp Pulse Resp B/P (MAP) Pulse Ox O2 Delivery O2 Flow Rate FiO2 12/05/17 06:06 97.8 73 16 96/53 (67) 97 Laboratory Results Test 11/29/17 06:05 Cholesterol Level 231 MG/DL (120-200) HDL Cholesterol 88.8 MG/DL (40.0-60.0) Hemoglobin A1c 5.1 % (4.3-6.0) LDL Cholesterol 115 MG/DL (0-99) Triglycerides Level 138 MG/DL (42-150) Summary of Procedures none Imaging Last Impressions Ribs X-Ray 11/27/17 0000 Signed Impressions: Service Date/Time: Monday, November 27, 2017 15:35 - CONCLUSION: Acute fractures involving the anterolateral aspects of the right eighth, ninth and 10th ribs. Filiberto Barragan MD Pending results at discharge: No Medications # of Antipsychotic meds at D/C: 1 Approp Antipsych med options 1 - Minimum of three failed multiple trials of monotherapy. 2 - Documented plan to taper to monotherapy due to previous use of multiple meds OR cross-taper in progress at D/C. 3 - Documentation of augmentation of Clozapine. 4 - Justification other than those listed in allowable values 1-3, document here : Discharge Discharge Date: Dec 05, 2017 Discharge Diagnosis: (1) Bipolar disorder current episode depressed ICD Code: F31.30 - Bipolar disorder, current episode depressed, mild or moderate severity, unspecified (2) Alcohol use disorder ICD Code: F10.99 - Alcohol use, unspecified with unspecified alcohol-induced disorder Pt Condition on Discharge: Stable Discharge Disposition: Discharge Home Discharge Instructions Diet Instructions: As Tolerated, No Restrictions Activities you can perform: Regular-No Restrictions Scheduled Appointment: Maged [facility] Appointment Date: Dec 06, 2017 Appointment Time: 8:00 am Discharge Time > 30 minutes Mental Status Examination Appearance: Appropriate Consciousness: Alert Orientation: x4 Motor Activity: Normal gait Speech: Unremarkable Language: Adequate Fund of Knowledge: Inadequate Attention and Concentration: Adequate Memory: Unremarkable Mood: Appropriate Affect: Appropriate Thought Process & Associations: Intact, Goal directed, Linear Thought Content: Hallucinations (minimal) Hallucination Type: Auditory Delusion Type: None Suicidal Ideation: No Suicidal Plan: No Suicidal Intention: No Homicidal Ideation: No Homicidal Plan: No Homicidal Intention: No Insight: Fair Judgment: Impulsive Discharge/Advance Care Plan Health Problems: (1) Bipolar disorder current episode depressed (2) Alcohol use disorder Goals to promote your health * To prevent worsening of your condition and complications * To maintain your health at the optimal level Directions to meet your goals Take your medications as prescribed Follow your dietary instruction Follow activity as directed Keep your appointments as scheduled Take your immunizations and boosters as scheduled If your symptoms worsen call your PCP, if no PCP go to Urgent Care Center or Emergency Room For 24/ questions related to your inpatient stay or results of tests pending at discharge, please contact Dr. Chris Urbina at Smoking is Dangerous to Your Health. Avoid second hand smoking Chris Urbina MD Dec 05, 2017 14:02
== END 2017-12-05 15:10 | disposition home or self-care (01) | DRG 885 ==
LOC: NEPD 13:17 → NEDA 11-28 16:02 → H260 11-28 20:01
PROVIDERS: ADMIT Student in an Organized Health Care Education/Training Program; ATTEND Student in an Organized Health Care Education/Training Program
DX: F31.30 Bipolar disorder, current episode depressed, mild or moderate severity, unspecified (principal); F10.99 Alcohol use, unspecified with unspecified alcohol-induced disorder; Y90.8 Blood alcohol level of 240 mg/100 ml or more; Z91.19 Patient's noncompliance with other medical treatment and regimen; F12.90 Cannabis use, unspecified, uncomplicated; R03.0 Elevated blood-pressure reading, without diagnosis of hypertension; F17.210 Nicotine dependence, cigarettes, uncomplicated; R19.7 Diarrhea, unspecified; S22.41XD Multiple fractures of ribs, right side, subsequent encounter for fracture with routine healing; W19.XXXD Unspecified fall, subsequent encounter
CPT/HCPCS: 71101; 80048; 80061; 80307; 83036; 83735; 84132; 84443; 85025; 87493; Q0163